=== PATIENT | male | born 2000 | race Caucasian/White ===

== ENCOUNTER 2021-03-03 13:10 | Emergency (ER) | payer OTHER ==
[~2021-03-03] VITALS: Ht 182.9 cm; Wt 74.4 kg
[2021-03-03] MEDS ORDERED: SODIUM CHLORIDE 0.9% 1,000 ML IV ONE (14:45)
[2021-03-03] MEDS ORDERED: cefTRIAXone 1GM/50ML D5W 50 ML IV ONE (14:45)
[2021-03-03 15:09] LABS: Basophils # (auto) 0 10 ^3/uL (0-0.2); Basophils % (auto) 0.1 % (0.0-2.0); Eosinophils # (auto) 0 10 ^3/uL (0-0.8); Hematocrit 42.5 % (41.0-53.0); Hemoglobin 15.4 g/dL (13.5-17.5); Lymphocytes % (auto) 6.9 % (10.0-50.0); Mean Corpuscular Hemoglobin 32.1 pg (28.0-32.0); Mean Corpuscular Hgb Conc. 36.3 g/dL (32.0-36.0); Mean Corpuscular Volume 88.3 fL (80.0-100.0); Monocytes # (auto) 0.3 10 ^3/uL (0-1.3); Monocytes % (auto) 2.3 % (0.0-12.0); Neutrophils # (auto) 13.1 10 ^3/uL (1.6-8.6); Neutrophils % (auto) 90.7 % (37.0-80.0); Nucleated Red Blood Cells % 0.2 %; Red Blood Cells 4.82 10^6/uL (4.5-5.90); Red Cell Distribution Width 12.7 % (11.8-14.3); White Blood Cell 14.5 10^3/uL (4.4-10.8)
[2021-03-03 15:16] LABS: Albumin 4.7 g/dL (3.4-5.0); Calcium 9.1 mg/dL (8.5-10.1); Magnesium 2.4 mg/dL (1.6-2.6)
[2021-03-03 15:20] LABS: BUN/Creatinine Ratio 21.3; Bilirubin, Total 0.9 mg/dL (0.2-1.0); Total Protein 8.3 g/dL (6.4-8.2)
[2021-03-03 15:25] LABS: INR 1.1 (0.9-1.15); Partial Thromboplastin Time 23.6 sec (23.0-31.2)
[2021-03-03] MEDS ORDERED: MORPHINE SULFATE INJECTION 2 MG/ML SYRG IV ONE (16:00)
[2021-03-03] MEDS ORDERED: PROMETHAZINE HCL 25 MG/ML 1ML IV ONE (16:00)
[2021-03-03 17:21] VITALS: BP 118/65
== END 2021-03-03 17:43 | disposition short-term general hospital (02) ==
LOC: ER 13:10
DX: S02.31XA Fracture of orbital floor, right side, initial encounter for closed fracture (principal); H57.04 Mydriasis; J32.0 Chronic maxillary sinusitis; H50.69 Other mechanical strabismus; R07.89 Other chest pain; W50.0XXA Accidental hit or strike by another person, initial encounter; Y93.71 Activity, boxing; Y92.89 Other specified places as the place of occurrence of the external cause; Y99.8 Other external cause status
CPT/HCPCS: 36415; 70486; 71046; 80053; 83735; 85025; 85610; 85730; 96365; 96375; 99285; J0696; J2270; J2550